=== PATIENT | female | born 1955 | race Caucasian/White ===

== ENCOUNTER → 2017-07-22 | Outpatient (CLI) | payer OTHER ==
[~2017-07-22] MED LIST: ASC500 PO; BACDS PO; CALC-547 PO; ESC10 PO; GING550C3 PO; MULT1CAP41 PO; PHENA200 PO; RAN150 PO; ZOL5 PO
--- NOTE | 2017-07-23 11:45 | RADIOLOGY IMAGING REPORT ---
FACILITY: [facility] [place] PATIENT NAME: SOURAV SOLOMON : [id number] MR: [id number] V: [id number] EXAM DATE: ORDERING PHYSICIAN: VIDAL HOLT TECHNOLOGIST: Yanet Kurtz PROCEDURE:BILATERAL DIGITAL SCREENING MAMMOGRAM WITH CAD ASSISTED INTERPRETATION & 3D TOMOSYNTHESIS COMPARISON:Prior mammograms 01/10/16, 04/12/14, 03/31/14, 01/28/13, 12/19/10. INDICATIONS:SCREENING FINDINGS: Moderately heterogeneous fibroglandular tissue is seen throughout the breasts. The parenchymal pattern has remained stable allowing for difference in mammographic technique & patient positioning. There is no evidence of malignant appearing mass, malignant appearing calcifications or other secondary sign of malignancy in either breast. DIAGNOSTIC CATEGORY 1--NEGATIVE. RECOMMENDATIONS: ROUTINE MAMMOGRAM AND CLINICAL EVALUATION. IMPRESSION: BIRADS 1: Negative No significant abnormality is seen. Dictated by: Clarisa Brower M.D. on 07/22/2017 at 15:49 Transcribed by: KENNA on 07/22/2017 at 15:52 Approved by: Clarisa Brower M.D. on 07/23/2017 at 11:44 [facility]
== END ==
LOC: MAMO 01:03
PROVIDERS: ATTEND Physician Assistant
DX: Z12.31 Encounter for screening mammogram for malignant neoplasm of breast (principal)
CPT/HCPCS: 77063; 77067